=== PATIENT | female | born 1985 | race American Indian/Alaskan Native ===

== ENCOUNTER 2021-03-17 14:27 | Emergency (ER) | payer MEDICAID ==
[2021-03-17 16:05] VITALS: BP 158/90
--- NOTE | 2021-03-17 17:08 | Emergency Department Report ---
ED ENT HPI - General Chief complaint: Sore Throat Stated complaint: SORE THROAT Time Seen by Provider: 03/17/21 17:03 Source: patient Mode of arrival: Ambulatory Limitations: No Limitations - History of Present Illness Initial comments: 35-year-old -[place] female presents to the emergency room for sore throat that started on Wednesday. Patient states that it is worse with swallowing. She also admits to today having a little nausea. She denies any fever no chills no chest pain or shortness of breath. Patient states that she is able to swallow but with pain. She denies any past medical history currently takes no medications on a daily basis. Patient states she has been taken ibuprofen and hot tea. She does have a primary care provider but did not make an appointment. MD complaint: sore throat Onset/Timin -: days(s) Location: throat Severity scale (0 -10): 9 Quality: stabbing, aching, sharp Consistency: constant Improves with: none Worsens with: swallowing Associated Symptoms: pain with swallowing, sore throat. denies: cough, gum swelling, toothache - Related Data Previous Rx's Medication Instructions Recorded Last Taken Type Azithromycin 500 mg PO QDAY 3 Days #3 tablet 03/17/21 Unknown Rx Ibuprofen [Motrin 800 MG tab] 800 mg PO Q8HR PRN #15 tablet 03/17/21 Unknown Rx predniSONE [Deltasone] 20 mg PO QDAY 5 Days #5 tab 03/17/21 Unknown Rx Allergies Allergy/AdvReac Type Severity Reaction Status Date / Time No Known Allergies Allergy Unverified 03/17/21 16:04 ED Dental HPI - General Chief complaint: Sore Throat Stated complaint: SORE THROAT Time Seen by Provider: 03/17/21 17:03 Source: patient Mode of arrival: Ambulatory Limitations: No Limitations - Related Data Previous Rx's Medication Instructions Recorded Last Taken Type Azithromycin 500 mg PO QDAY 3 Days #3 tablet 03/17/21 Unknown Rx Ibuprofen [Motrin 800 MG tab] 800 mg PO Q8HR PRN #15 tablet 03/17/21 Unknown Rx predniSONE [Deltasone] 20 mg PO QDAY 5 Days #5 tab 03/17/21 Unknown Rx Allergies Allergy/AdvReac Type Severity Reaction Status Date / Time No Known Allergies Allergy Unverified 03/17/21 16:04 ED Review of Systems ROS: Stated complaint: SORE THROAT Other details as noted in HPI Comment: All other systems reviewed and negative ED Past Medical Hx - Past Medical History Previous Medical History?: No - Medications Home Medications: Home Medications Medication Instructions Recorded Confirmed Last Taken Type Azithromycin 500 mg PO QDAY 3 Days #3 tablet 03/17/21 Unknown Rx Ibuprofen [Motrin 800 MG tab] 800 mg PO Q8HR PRN #15 tablet 03/17/21 Unknown Rx predniSONE [Deltasone] 20 mg PO QDAY 5 Days #5 tab 03/17/21 Unknown Rx ED Physical Exam - General Limitations: No Limitations General appearance: alert, in no apparent distress - Head Head exam: Present: atraumatic, normocephalic - Eye Eye exam: Present: normal appearance - Expanded ENT Exam Expanded Throat exam: Positive: tonsillar erythema, tonsillomegaly, tonsillar exudate - Neck Neck exam: Present: normal inspection, full ROM - Respiratory Respiratory exam: Absent: accessory muscle use - Cardiovascular Cardiovascular Exam: Present: regular rate - GI/Abdominal GI/Abdominal exam: Present: soft. Absent: distended, tenderness - Extremities Exam Extremities exam: Present: normal inspection, full ROM - Back Exam Back exam: Present: normal inspection - Neurological Exam Neurological exam: Present: alert, oriented X3, normal gait - Psychiatric Psychiatric exam: Present: normal affect, normal mood - Skin Skin exam: Present: warm, dry, intact, normal color. Absent: rash ED Course Vital Signs 03/17/21 16:04 Temperature 98.6 F Pulse Rate 91 H Respiratory 20 Rate Blood Pressure 158/90 [Right] O2 Sat by Pulse 100 Oximetry ED Medical Decision Making - Medical Decision Making 35-year-old -[place] female presents to the emergency room for sore throat that started on Wednesday. Patient states that it is worse with swallowing. She also admits to today having a little nausea. She denies any fever no chills no chest pain or shortness of breath. Patient states that she is able to swallow but with pain. She denies any past medical history currently takes no medications on a daily basis. Patient states she has been taken ibuprofen and hot tea. She does have a primary care provider but did not make an appointment. Patient is Centor criteria positive for strep. Patient be discharged home on Zithromax 500 mg p.o. daily for 3 days. Prednisone 20 mg p.o. daily for 5 days and ibuprofen 800 mg p.o. every 8 hours as needed. Patient is instructed to follow-up with her primary care provider in the next 3 to 5 days if symptoms has not improved. Critical care attestation.: If time is entered above; I have spent that time in minutes in the direct care of this critically ill patient, excluding procedure time. ED Disposition Clinical Impression: Acute streptococcal pharyngitis Disposition: TO HOME OR SELFCARE Is pt being admited?: No Does the pt Need Aspirin: No Condition: Stable Instructions: Strep Throat, Adult, [id number] Additional Instructions: Complete antibiotics as prescribed, complete steroids as prescribed. Ibuprofen as needed for pain. Increase your fluid intake while taking medication. Follow-up with your primary care provider if symptoms are not improving. Prescriptions: Azithromycin 500 mg PO QDAY 3 Days #3 tablet predniSONE [Deltasone] 20 mg PO QDAY 5 Days #5 tab Ibuprofen [Motrin 800 MG tab] 800 mg PO Q8HR PRN #15 tablet PRN Reason: Pain , Severe (7-10) Referrals: Your, primary care provider. [Other] - 3-5 Days Forms: Work/School Release Form(ED)
== END 2021-03-17 18:23 | disposition home or self-care (01) ==
LOC: ED 14:27
DX: J02.0 Streptococcal pharyngitis (principal); Z79.1 Long term (current) use of non-steroidal anti-inflammatories (NSAID); Z79.2 Long term (current) use of antibiotics; Z79.899 Other long term (current) drug therapy
CPT/HCPCS: 99281

== ENCOUNTER 2022-08-01 21:22 | Emergency (ER) | payer MEDICAID ==
[2022-08-01 22:33] VITALS: BP 157/101
== END 2022-08-02 13:27 | disposition left against medical advice (07) ==
LOC: ED 21:22
DX: M79.605 Pain in left leg (principal); Z53.21 Procedure and treatment not carried out due to patient leaving prior to being seen by health care provider

== ENCOUNTER 2022-08-02 12:26 | Emergency (ER) | payer MEDICAID ==
[2022-08-02 13:06] VITALS: BP 147/97
== END 2022-08-02 23:40 ==
LOC: ED 12:26
DX: M79.602 Pain in left arm (principal); Z53.21 Procedure and treatment not carried out due to patient leaving prior to being seen by health care provider